=== PATIENT | female | born 1955 | race Caucasian/White ===

== ENCOUNTER 2020-08-15 11:36 | Emergency (ER) | payer BC ==
[~2020-08-15] VITALS: Ht 157.5 cm; Wt 54.5 kg
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
[2020-08-15 12:28] LABS: BASOPHILS # (AUTO) 0.2 X10'3 (0-0.2); EOSINOPHILS # (AUTO) 0.1 X10'3 (0-0.9); HEMOGLOBIN 14.4 g/dl (12.0-16.0); LYMPHOCYTES # (AUTO) 2.6 X10'3 (1.1-4.8); LYMPHOCYTES % (AUTO) 30.1 % (21-51); MEAN CORPUSCULAR HEMOGLOBIN 33.5 PG (27.0-31.0); MEAN CORPUSCULAR HGB CONC 33.6 g/dL (33.0-36.5); MEAN CORPUSCULAR VOLUME 99.8 FL (78-98); MEAN PLATELET VOLUME 6.9 FL (7.4-10.4); MONOCYTES # (AUTO) 0.4 X10'3 (0-0.9); MONOCYTES % (AUTO) 4.7 % (2-12); NEUTROPHILS # (AUTO) 5.4 X10'3 (1.8-7.7); NEUTROPHILS % (AUTO) 62.2 % (42-75); PLATELET COUNT 442 X10'3 (140-440); RED BLOOD COUNT 4.31 X10'6 (4.20-5.60); RED CELL DISTRIBUTION WIDTH 15.4 % (11.5-14.5); WHITE BLOOD COUNT 8.7 X10'3 (4.5-11.0)
[2020-08-15] MEDS ORDERED: normal saline 1000ML IV soln IVB ONE (12:30)
[2020-08-15 12:37] LABS: ALANINE AMINOTRANSFERASE 43 U/L (12-78); ALBUMIN 4.5 G/DL (3.4-5.0); ALBUMIN/GLOBULIN RATIO 1.1 (1.1-1.5); ALKALINE PHOSPHATASE 100 IU/L (46-116); ANION GAP 14 (8-16); ASPARTATE AMINO TRANSFERASE 32 U/L (10-37); BILIRUBIN,TOTAL 0.3 MG/DL (0.1-1.0); BLOOD UREA NITROGEN 16 MG/DL (7-18); BUN/CREATININE RATIO 27.1 (6.6-38.0); CHLORIDE 104 MMOL/L (99-107); CREATININE 0.59 MG/DL (0.40-0.90); GLUCOSE 104 MG/DL (70-104); SODIUM 142 MMOL/L (135-145); TOTAL CARBON DIOXIDE 23.7 MMOL/L (24-32); TOTAL PROTEIN 8.6 G/DL (6.4-8.2); eGFR > 90 ML/MIN
[2020-08-15 12:38] LABS: ETHANOL 0.348 GM/DL (0.0-0.010)
[2020-08-15 12:44] LABS: CLARITY,URINE CLEAR (Clear); COLOR,URINE STRAW (Yellow); GLUCOSE, URINE NEGATIVE (Neg); KETONES,URINE NEGATIVE (Neg); LEUKOCYTE ESTERASE ,URINE NEGATIVE (Neg); NITRITES, URINE NEGATIVE (Neg); OCCULT BLOOD,URINE NEGATIVE (Neg); PH,URINE 5.5 (4.8-8.0); PROTEIN,URINE NEGATIVE (Neg); URINE HCG NEGATIVE (NEG); UROBILINOGEN,URINE 0.2 E.U/dL (0.2-1.0)
[2020-08-15 12:49] LABS: UA COLLECTION TYPE CLN CATCH MIDSTREAM
[2020-08-15 12:51] LABS: URINE AMPHETAMINE SCREEN NEGATIVE (Neg); URINE BARBITUATE SCREEN NEGATIVE (Neg); URINE BENZODIAZEPINES SCREEN NEGATIVE (Neg); URINE CANNABINOID SCREEN NEGATIVE (Neg); URINE COCAINE SCREEN NEGATIVE (Neg); URINE METHADONE SCREEN NEGATIVE (Neg); URINE OPIATE SCREEN NEGATIVE (Neg); URINE PHENCYCLIDINE SCREEN NEGATIVE (Neg)
[2020-08-15] MEDS ORDERED: ibuprofen tablet 400 MG TABLET PO ONE (15:50)
--- NOTE | 2020-08-15 19:44 | NUR ---
The patient has been moved to bed 21 in the ER overflow. Her daughter is at the bedside. She currently feels very embarrassed about being here but she denies that she is suicidal. She is alert, oriented and pleasant.
--- NOTE | 2020-08-15 20:23 | NUR ---
The patient's daughter has left for the evening. They seemed to have a loving a close relationship.
[2020-08-15] MEDS ORDERED: ondansetron 4mg rapidly disintigrating tab PO ONE (20:40)
--- NOTE | 2020-08-15 20:42 | NUR ---
Patient reporting nausea. Vernon BISWAS made aware and order received.
--- NOTE | 2020-08-15 21:19 | NUR ---
The patient is resting on her bed and appears to be sleeping.
--- NOTE | 2020-08-15 22:41 | NUR ---
THe patient appears to be sleeping
--- NOTE | 2020-08-16 01:01 | NUR ---
The patient appears to be sleeping.
[2020-08-16] MEDS ORDERED: ondansetron 4mg rapidly disintigrating tab PO ONE (02:35)
--- NOTE | 2020-08-16 02:37 | NUR ---
The patient is awake and complaining of nausea. Dr Caceres made aware and orders received.
--- NOTE | 2020-08-16 04:24 | NUR ---
The patient appears to be sleeping
[2020-08-16] MEDS ORDERED: DESV50TA PO (05:28)
[2020-08-16] MEDS ORDERED: TRAZ-256 PO (05:28)
[2020-08-16 05:47] VITALS: BP 134/85
--- NOTE | 2020-08-16 05:54 | NUR ---
The patient appears to be sleeping well during the night
--- NOTE | 2020-08-16 06:02 | NUR ---
Per Dr. Caceres no need to do EKG at this time.
[2020-08-16] MEDS ORDERED: ketorolac tromethamine 15mg/ml inj. IV ONE (07:20)
[2020-08-16] MEDS ORDERED: ondansetron/PF 4mg/2ml inj IV ONE (07:20)
--- NOTE | 2020-08-16 08:19 | NUR ---
PT C/O MARI AND NAUSEA, INFORMED DR. SIMON, PLEASE SEE NEW ORDERS.
== END 2020-08-16 10:06 | disposition home or self-care (01) ==
LOC: ER 11:37
DX: F10.129 Alcohol abuse with intoxication, unspecified (principal); R45.851 Suicidal ideations; F43.10 Post-traumatic stress disorder, unspecified; Z88.0 Allergy status to penicillin; Z72.89 Other problems related to lifestyle
CPT/HCPCS: 36415; 80053; 80305; 80320; 81003; 81025; 85025; 93005; 96361; 96374; 96375; 99285; J1885; J2405; J7030

== ENCOUNTER 2020-11-04 10:26 | Emergency (ER) | payer MEDICARE, BC ==
[~2020-11-04] VITALS: Ht 167.6 cm; Wt 57.3 kg
[~2020-11-04 10:26] MED LIST: DESV50TA PO; TRAZ-256 PO
[2020-11-04] MEDS ORDERED: propofol 10mg/ml 20ml vial IV ONE (10:55)
[2020-11-04] MEDS ORDERED: fentaNYL/PF 50MCG/1 ML 2ML syringe IV ONE (10:55)
[2020-11-04] MEDS ORDERED: normal saline 1000ML IV soln IVB ONE (10:55)
[2020-11-04] MEDS ORDERED: HYDR-3972 PO (13:08)
[2020-11-04] MEDS ORDERED: HYDROcodone/acetaminophen 10/325mg tab PO ONE (13:40)
[2020-11-04 14:28] VITALS: BP 142/82
[2020-11-09] MEDS ORDERED: ACET-890 PO (09:34)
== END 2020-11-04 14:30 | disposition home or self-care (01) ==
LOC: ER 10:27
DX: S82.851A Displaced trimalleolar fracture of right lower leg, initial encounter for closed fracture (principal); Z79.899 Other long term (current) drug therapy; F17.200 Nicotine dependence, unspecified, uncomplicated; W01.0XXA Fall on same level from slipping, tripping and stumbling without subsequent striking against object, initial encounter; Y93.53 Activity, golf; Y92.89 Other specified places as the place of occurrence of the external cause; Y99.8 Other external cause status
CPT/HCPCS: 73600; 73610; 96360; 99152; 99153; 99285; J3010; J7030

== ENCOUNTER 2021-09-16 13:28 | Observation (INO) | payer BC, MEDICARE ==
[~2021-09-16] VITALS: Ht 160 cm; Wt 53.6 kg
[~2021-09-16 13:28] MED LIST changes: +ACET-890 PO
[2021-09-16] MEDS ORDERED: famotidine/PF 10 mg/ml inj IV ONE (14:30)
[2021-09-16] MEDS ORDERED: folic acid 1mg/0.2ml inj IV ONE (14:30)
[2021-09-16] MEDS ORDERED: normal saline 1000ML IV soln IVB ONE ×2 (14:30→15:35)
[2021-09-16] MEDS ORDERED: ondansetron inj. 24 MG in normal saline 250ml IV soln 228 ML IV SCH (14:30)
[2021-09-16] MEDS ORDERED: thiamine 100mg/ml 2ml inj. IV ONE (14:30)
[2021-09-16 14:31] LABS: BASOPHILS # (AUTO) 0.1 X10'3 (0-0.2); MONOCYTES # (AUTO) 0.4 X10'3 (0-0.9); WHITE BLOOD COUNT 6.6 X10'3 (4.5-11.0)
[2021-09-16 14:33] LABS: BASOPHILS % (AUTO) 1.3 % (0-1); EOSINOPHILS # (AUTO) 0.1 X10'3 (0-0.9); EOSINOPHILS % (AUTO) 0.9 % (0-6); HEMATOCRIT 35.5 % (35.0-45.0); LYMPHOCYTES # (AUTO) 1.4 X10'3 (1.1-4.8); LYMPHOCYTES % (AUTO) 21.3 % (21-51); MEAN CORPUSCULAR HGB CONC 33.8 g/dL (33.0-36.5); MEAN CORPUSCULAR VOLUME 97.6 FL (78-98); MEAN PLATELET VOLUME 7.2 FL (7.4-10.4); MONOCYTES % (AUTO) 5.8 % (2-12); NEUTROPHILS # (AUTO) 4.7 X10'3 (1.8-7.7); NEUTROPHILS % (AUTO) 70.7 % (42-75); PLATELET COUNT 256 X10'3 (140-440); RED BLOOD COUNT 3.64 X10'6 (4.20-5.60); RED CELL DISTRIBUTION WIDTH 15.3 % (11.5-14.5)
[2021-09-16] MEDS ORDERED: ondansetron/PF 4mg/2ml inj IV ONE (14:40)
[2021-09-16 14:50] LABS: ALANINE AMINOTRANSFERASE 19 U/L (12-78); ALBUMIN 2.9 G/DL (3.4-5.0); ALKALINE PHOSPHATASE 76 IU/L (46-116); ANION GAP 11 (8-16); ASPARTATE AMINO TRANSFERASE 26 U/L (10-37); BILIRUBIN,TOTAL 0.3 MG/DL (0.1-1.0); BLOOD UREA NITROGEN 11 MG/DL (7-18); BUN/CREATININE RATIO 21.6 (6.6-38.0); CALCIUM 7.6 MG/DL (8.5-10.1); CHLORIDE 107 MMOL/L (99-107); CREATININE 0.51 MG/DL (0.40-0.90); GLUCOSE 101 MG/DL (70-104); POTASSIUM 3.2 MMOL/L (3.5-5.1); SODIUM 139 MMOL/L (135-145); TOTAL CARBON DIOXIDE 20.9 MMOL/L (24-32); TOTAL PROTEIN 5.9 G/DL (6.4-8.2); eGFR > 90 ML/MIN
[2021-09-16 14:59] LABS: ETHANOL 0.263 GM/DL (0.0-0.010)
[2021-09-16] MEDS ORDERED: ZOLP5TAB8 PO (15:50)
[2021-09-16] MEDS ORDERED: TIZA-205 PO (15:50)
[2021-09-16] MEDS ORDERED: DESV50TA20 PO (15:50)
[2021-09-16] MEDS ORDERED: TRAZ-251 PO (15:50)
[2021-09-16] MEDS ORDERED: DOXE6TAB4 PO (15:50)
[2021-09-16] MEDS ORDERED: magnesium 4gm in 100ml NS 100 ML IV PRN (18:35)
[2021-09-16] MEDS ORDERED: metoclopramide 5 mg/ml inj IV PRN (18:35)
[2021-09-16] MEDS ORDERED: magnesium Cl slow-release 64mg tablet PO PRN (18:35)
[2021-09-16] MEDS ORDERED: potassium CL 10mEq/100ml bag 100 ML IV PRN (18:35)
[2021-09-16] MEDS ORDERED: POTASSIUM BICARB 20meq eff tab 20 MEQ TABLET.EFF PO PRN (18:35)
[2021-09-16] MEDS ORDERED: ondansetron/PF 4mg/2ml inj IV PRN (18:35)
[2021-09-16] MEDS ORDERED: magnesium 2GM in 50ml NS 50 ML IV PRN (18:35)
[2021-09-16 19:28] LABS: MAGNESIUM 1.6 MG/DL (1.5-2.4)
[2021-09-16] MEDS: K and/or MAG REPLACEMENT MC SCH (19:56)
--- NOTE | 2021-09-16 20:07 | NUR ---
PAGER ID: [phone] Dr. Eid MESSAGE: Willy Beard, in ED 5. Need Tylenol orders for pain. DX overdose on Ambien and ETOH. AX penicillin. Liver function WNL, APAP toxicology 10 (WNL). Cheryle NAVARRO [id number]
--- NOTE | 2021-09-16 20:51 | NUR ---
PAGER ID: [phone] MESSAGE: Shasha Aguilera, ED 3 Admitted patient stating she wants to leave. Here for ETOH and Ambien overdose. a/o x 4, sleepy HR 62 BP 104/68 Cheryle NAVARRO
[2021-09-16 22:00] VITALS: BP 105/60
[2021-09-17] MEDS: acetaminophen 325mg tablet PO PRN ×3 (01:23→15:23)
[2021-09-17] MEDS: thiamine 100mg/ml 2ml inj. IV SCH ×4 (01:25→21:00)
[2021-09-17] MEDS: POTASSIUM BICARB 20meq eff tab 20 MEQ TABLET.EFF PO PRN ×2 (01:25→06:00)
[2021-09-17 02:00] VITALS: BP 114/68
[2021-09-17 06:00] VITALS: BP 123/94
[2021-09-17 06:33] LABS: BASOPHILS # (AUTO) 0.1 X10'3 (0-0.2); BASOPHILS % (AUTO) 0.9 % (0-1); EOSINOPHILS % (AUTO) 0.6 % (0-6); HEMATOCRIT 35.8 % (35.0-45.0); LYMPHOCYTES # (AUTO) 0.8 X10'3 (1.1-4.8); LYMPHOCYTES % (AUTO) 10.5 % (21-51); MEAN CORPUSCULAR HEMOGLOBIN 32.2 PG (27.0-31.0); MEAN CORPUSCULAR HGB CONC 33.7 g/dL (33.0-36.5); MEAN CORPUSCULAR VOLUME 95.8 FL (78-98); MEAN PLATELET VOLUME 7.5 FL (7.4-10.4); MONOCYTES # (AUTO) 0.5 X10'3 (0-0.9); MONOCYTES % (AUTO) 6.8 % (2-12); NEUTROPHILS # (AUTO) 6.1 X10'3 (1.8-7.7); NEUTROPHILS % (AUTO) 81.2 % (42-75); PLATELET COUNT 212 X10'3 (140-440); RED BLOOD COUNT 3.73 X10'6 (4.20-5.60); RED CELL DISTRIBUTION WIDTH 15.6 % (11.5-14.5); WHITE BLOOD COUNT 7.6 X10'3 (4.5-11.0)
[2021-09-17 06:59] LABS: ALANINE AMINOTRANSFERASE 22 U/L (12-78); ALBUMIN 3.1 G/DL (3.4-5.0); ALBUMIN/GLOBULIN RATIO 1.1 (1.1-1.5); ALKALINE PHOSPHATASE 79 IU/L (46-116); ANION GAP 10 (8-16); ASPARTATE AMINO TRANSFERASE 19 U/L (10-37); BILIRUBIN,TOTAL 0.7 MG/DL (0.1-1.0); BLOOD UREA NITROGEN 14 MG/DL (7-18); BUN/CREATININE RATIO 25.9 (6.6-38.0); CALCIUM 8.4 MG/DL (8.5-10.1); CHLORIDE 104 MMOL/L (99-107); CREATININE 0.54 MG/DL (0.40-0.90); GLUCOSE 76 MG/DL (70-104); LIPASE < 50 U/L (73-393); MAGNESIUM 1.6 MG/DL (1.5-2.4); PHOSPHORUS 2.9 MG/DL (2.3-4.5); SODIUM 138 MMOL/L (135-145); eGFR > 90 ML/MIN
[2021-09-17] MEDS: K and/or MAG REPLACEMENT MC SCH ×2 (08:00→20:00)
--- NOTE | 2021-09-17 09:18 | NUR ---
Pt c/o pain paged MD regarding awaiting orders.
[2021-09-17 11:00] VITALS: BP 146/90
[2021-09-17] MEDS: traZODone 50mg tablet PO SCH ×2 (13:00→21:10)
--- NOTE | 2021-09-17 13:02 | NUR ---
new order: regular diet, Chest X ray and incentive spirometer and float valve Q2H. patient was educated to use it.
[2021-09-17 15:00] VITALS: BP 146/62
--- NOTE | 2021-09-17 16:18 | NUR ---
Patient mood was flat, stated I didn't want to eat lunch, very sleepy and took Trazodone 50 mg PO per MD order (TID) this afternoon. Continue to closely monitor her mood.
--- NOTE | 2021-09-17 16:43 | NUR ---
Pt today has a very flat affect, withdrawn and depressed feeling. Pt appears depressed. Continue to closely monitor mood and provide pt a safe environment. Frequent rounding. This RN sits with pt from time to time at eye level with pt to encourage her to verbalize her feelings of hopelessness.
--- NOTE | 2021-09-17 16:57 | NUR ---
Patient have no BM for 2 days, prune juice 240 ml given and drank it.
[2021-09-17 18:00] VITALS: BP 126/77
[2021-09-17] MEDS: tizanidine 4mg tablet PO SCH (20:00)
[2021-09-17] MEDS ORDERED: DOXEPIN HCL PO SCH (21:00)
[2021-09-17] MEDS ORDERED: zolpidem 5mg tablet PO SCH (21:00)
[2021-09-17 22:00] VITALS: BP 114/61
[2021-09-17] MEDS: pantoprazole 40mg Tablet.DR PO SCH (22:16)
[2021-09-18 02:00] VITALS: BP 98/62
[2021-09-18 06:00] VITALS: BP 132/77
[2021-09-18 06:38] LABS: EOSINOPHILS # (AUTO) 0.1 X10'3 (0-0.9); EOSINOPHILS % (AUTO) 2.5 % (0-6); HEMATOCRIT 39.4 % (35.0-45.0); HEMOGLOBIN 13.1 g/dl (12.0-16.0); LYMPHOCYTES % (AUTO) 21.6 % (21-51); MEAN CORPUSCULAR HEMOGLOBIN 32.6 PG (27.0-31.0); MEAN CORPUSCULAR HGB CONC 33.3 g/dL (33.0-36.5); MEAN CORPUSCULAR VOLUME 97.9 FL (78-98); MEAN PLATELET VOLUME 8.1 FL (7.4-10.4); MONOCYTES # (AUTO) 0.4 X10'3 (0-0.9); MONOCYTES % (AUTO) 8.2 % (2-12); NEUTROPHILS # (AUTO) 3.2 X10'3 (1.8-7.7); NEUTROPHILS % (AUTO) 66.7 % (42-75); PLATELET COUNT 190 X10'3 (140-440); RED BLOOD COUNT 4.03 X10'6 (4.20-5.60); RED CELL DISTRIBUTION WIDTH 15.4 % (11.5-14.5); WHITE BLOOD COUNT 4.7 X10'3 (4.5-11.0)
[2021-09-18 07:01] LABS: ALANINE AMINOTRANSFERASE 22 U/L (12-78); ALBUMIN 3.2 G/DL (3.4-5.0); ALBUMIN/GLOBULIN RATIO 0.9 (1.1-1.5); ALKALINE PHOSPHATASE 92 IU/L (46-116); ANION GAP 6 (8-16); ASPARTATE AMINO TRANSFERASE 23 U/L (10-37); BILIRUBIN,TOTAL 0.8 MG/DL (0.1-1.0); BLOOD UREA NITROGEN 8 MG/DL (7-18); BUN/CREATININE RATIO 12.3 (6.6-38.0); CHLORIDE 103 MMOL/L (99-107); CREATININE 0.65 MG/DL (0.40-0.90); GLUCOSE 97 MG/DL (70-104); LIPASE 77 U/L (73-393); MAGNESIUM 1.7 MG/DL (1.5-2.4); SODIUM 137 MMOL/L (135-145); TOTAL CARBON DIOXIDE 28.4 MMOL/L (24-32); TOTAL PROTEIN 6.6 G/DL (6.4-8.2); eGFR > 90 ML/MIN
[2021-09-18 07:23] LABS: CALCIUM 8.9 MG/DL (8.5-10.1)
[2021-09-18] MEDS ORDERED: venlafaxine 25mg tablet PO SCH (08:00)
[2021-09-18] MEDS: K and/or MAG REPLACEMENT MC SCH (08:00)
[2021-09-18] MEDS: thiamine 100mg/ml 2ml inj. IV SCH (08:00)
[2021-09-18] MEDS: acetaminophen 325mg tablet PO PRN (09:56)
[2021-09-18] MEDS: pantoprazole 40mg Tablet.DR PO SCH (09:57)
[2021-09-18] MEDS: traZODone 50mg tablet PO SCH (09:57)
[2021-09-18] MEDS: tizanidine 4mg tablet PO SCH (09:57)
[2021-09-18] MEDS ORDERED: MULT-1085 PO (10:47)
[2021-09-18] MEDS ORDERED: PANT40TA54 PO (10:47)
[2021-09-18] MEDS ORDERED: THIA50TA10 PO (10:47)
[2021-09-18] MEDS ORDERED: FOLI0.4T6 PO (10:47)
[2021-09-21] MEDS ORDERED: folic acid 1mg tablet PO SCH (08:00)
[2021-09-21] MEDS ORDERED: thiamine 100mg tablet PO SCH (08:00)
--- NOTE | 2021-09-22 14:48 | NUR ---
Case Management DC follow up: Spoke with Patient via telephone.S/P : Patient Reports: Denies: Emergent SOB, resp distress; however, complains of discomfort with her ribs on her right side from previous fall, verbalizes nothing broken on x-ray.Encourage to use a pillow to splint ribs if coughing.Verbalizes she has dizziness when she first stands, reviewed need to sit up slowly, wait until dizziness subsides and then stand slowly. Verbalizes her is there to help.Verbalizes compliance with aftercare.Verbalizes she is not taking Ambien, nor is she drinking alcohol .Verbalizes understanding of s/s that warrant a 9-11/ER visit for further evaluation.Verbalizes understanding of new Rx,, why prescribed; continues/resumes currant Rx as ordered.Patient verbalizes she will call her PCP for follow up appointment.Verbalizes that the nurses and everyone were very kind and took good care of her.Needs met, questions/concerns addressed at DC.No further questions/concerns regarding recent hospital stay and/or DC status at this time.
== END 2021-09-18 12:28 | disposition home or self-care (01) ==
LOC: ER 13:28 → ED HOLD 18:38 → EDBEDREQ 20:34 → PCU 3S 22:10
PROVIDERS: ADMIT Internal Medicine; ATTEND Internal Medicine
DX: G93.41 Metabolic encephalopathy (principal); F10.220 Alcohol dependence with intoxication, uncomplicated; T42.6X1A Poisoning by other antiepileptic and sedative-hypnotic drugs, accidental (unintentional), initial encounter; E87.6 Hypokalemia; F32.A Depression, unspecified; Z88.0 Allergy status to penicillin; Z90.710 Acquired absence of both cervix and uterus; Z79.899 Other long term (current) drug therapy; W19.XXXA Unspecified fall, initial encounter; Y93.89 Activity, other specified; Y92.89 Other specified places as the place of occurrence of the external cause
CPT/HCPCS: 36415; 70450; 71046; 80053; 80320; 80329; 82140; 83690; 83735; 84100; 84443; 85025; 85610; 87081; 94667; 94668; 94760; 96361; 96374; 96375; 96376; 97116; 97161; 97530; 99291; 99292; G0378; J2405; J3411; J3490; J7030

== ENCOUNTER 2023-11-08 09:31 | Emergency (ER) | payer MEDICARE, BC ==
[~2023-11-08] VITALS: Ht 162.6 cm; Wt 50.0 kg
[~2023-11-08 09:31] MED LIST changes: -ACET-890 PO; +CLON0.1T2 PO; -DESV50TA PO; +DICL20GE TP; +LORA-269 PO; +MULT-25 PO; +NALT50TA5 PO; +PANT40TA54 PO; +QUET100T34 PO; +TIZA-205 PO; -TRAZ-256 PO; +VENL225T3 PO
[2023-11-08 09:37] VITALS: TEMP 97.9
[2023-11-08 10:24] LABS: ALANINE AMINOTRANSFERASE 23 U/L (12-78); ALBUMIN 3.6 G/DL (3.4-5.0); ALBUMIN/GLOBULIN RATIO 0.8 (1.1-1.5); ALKALINE PHOSPHATASE 106 IU/L (46-116); ANION GAP 11 (8-16); ASPARTATE AMINO TRANSFERASE 21 U/L (10-37); BILIRUBIN,TOTAL 0.3 MG/DL (0.1-1.0); BLOOD UREA NITROGEN 17 MG/DL (7-18); BUN/CREATININE RATIO 19.8 (10.0-20.0); CALCIUM 9.3 MG/DL (8.5-10.1); CHLORIDE 100 MMOL/L (99-107); CREATININE 0.86 MG/DL (0.40-0.90); GLUCOSE 114 MG/DL (70-104); POTASSIUM 3.9 MMOL/L (3.5-5.1); SODIUM 138 MMOL/L (135-145); TOTAL CARBON DIOXIDE 27.3 MMOL/L (24-32); TOTAL PROTEIN 8.1 G/DL (6.4-8.2); eCRCL 49 ML/MIN; eGFR 66 ML/MIN
[2023-11-08 10:35] LABS: BASOPHILS % (AUTO) 0.3 % (0-1); EOSINOPHILS # (AUTO) 0.1 X10'3 (0-0.9); EOSINOPHILS % (AUTO) 1.4 % (0-6); HEMATOCRIT 40.3 % (35.0-45.0); HEMOGLOBIN 13.2 g/dl (12.0-16.0); LYMPHOCYTES # (AUTO) 2.2 X10'3 (1.1-4.8); LYMPHOCYTES % (AUTO) 34.3 % (21-51); MEAN CORPUSCULAR HEMOGLOBIN 30.9 PG (27.0-31.0); MEAN CORPUSCULAR HGB CONC 32.8 g/dL (33.0-36.5); MEAN CORPUSCULAR VOLUME 94.2 FL (78-98); MEAN PLATELET VOLUME 7.3 FL (7.4-10.4); MONOCYTES # (AUTO) 0.5 X10'3 (0-0.9); MONOCYTES % (AUTO) 7.9 % (2-12); NEUTROPHILS # (AUTO) 3.6 X10'3 (1.8-7.7); NEUTROPHILS % (AUTO) 56.1 % (42-75); PLATELET COUNT 626 X10'3 (140-440); RED BLOOD COUNT 4.28 X10'6 (4.20-5.60); RED CELL DISTRIBUTION WIDTH 14.6 % (11.5-14.5); WHITE BLOOD COUNT 6.4 X10'3 (4.5-11.0)
[2023-11-08 11:31] LABS: BILIRUBIN,URINE NEGATIVE (Neg); CLARITY,URINE SLIGHTLY CLOUDY (Clear); COLOR,URINE YELLOW (Yellow); GLUCOSE, URINE NEGATIVE (Neg); KETONES,URINE NEGATIVE (Neg); LEUKOCYTE ESTERASE ,URINE NEGATIVE (Neg); NITRITES, URINE NEGATIVE (Neg); OCCULT BLOOD,URINE NEGATIVE (Neg); PH,URINE 5.5 (4.8-8.0); PROTEIN,URINE NEGATIVE (Neg); UROBILINOGEN,URINE 0.2 E.U/dL (0.2-1.0)
[2023-11-08 11:42] LABS: UA COLLECTION TYPE NON-SPECIFIED
[2023-11-08 11:44] LABS: MUCUS STRANDS FEW /LPF (Neg); SQUAMOUS EPITHELIAL CELL,UR FEW /LPF (FEW)
[2023-11-08 11:46] LABS: BACTERIA,URINE 1+ /HPF (Neg)
[2023-11-08 11:52] LABS: RBC,URINE 0-2 /HPF (0-2)
[2023-11-08 11:55] LABS: COARSE GRANULAR CAST 0-3 /LPF (NEGATIVE); HYALINE CASTS 0-3 /LPF (NEGATIVE)
[2023-11-08] MEDS: cephalexin 250mg capsule PO ONE (12:12)
[2023-11-08] MEDS ORDERED: CEPH-585 PO (12:16)
[2023-11-08 12:28] VITALS: BP 138/80; PULSE 82; RESP 16; O2SAT 98
== END 2023-11-08 12:30 | disposition home or self-care (01) ==
LOC: ER 09:31
DX: N39.0 Urinary tract infection, site not specified (principal); F32.A Depression, unspecified; Z88.0 Allergy status to penicillin; Z79.2 Long term (current) use of antibiotics; Z79.1 Long term (current) use of non-steroidal anti-inflammatories (NSAID)
CPT/HCPCS: 36415; 71045; 80053; 81001; 85025; 87088; 93005; 99285

== ENCOUNTER 2025-03-28 12:27 | Inpatient (IN) | payer MEDICARE, BC ==
[~2025-03-28] VITALS: Ht 157.5 cm; Wt 54.0 kg
[~2025-03-28 12:27] MED LIST changes: +CHLO25CA10 PO
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
[2025-03-28 13:37] LABS: MEAN PLATELET VOLUME 7.2 FL (7.4-10.4); RED CELL DISTRIBUTION WIDTH 19.5 % (11.5-14.5)
[2025-03-28 13:56] LABS: CREATININE 0.59 MG/DL (0.40-0.90); TOTAL CARBON DIOXIDE 21.6 MMOL/L (24-32); eCRCL 71 ML/MIN; eGFR > 90 ML/MIN
[2025-03-28] MEDS: normal saline 1000ml 1,000 ML IV ONE (13:56)
[2025-03-28] MEDS: HYDROcodone/acetaminophen 5mg/325mg tablet PO ONE (13:57)
[2025-03-28] MEDS: ondansetron/PF 4mg/2ml inj IV ONE (13:58)
[2025-03-28] MEDS ORDERED: magnesium hydroxide 30ml (MOM) UD suspension PO PRN (14:50)
[2025-03-28] MEDS ORDERED: magnesium Cl slow-release 64mg tablet PO PRN (14:50)
[2025-03-28] MEDS ORDERED: mag hydrox/Alum hydrox/simeth 30ml oral suspension PO PRN (14:50)
[2025-03-28] MEDS ORDERED: potassium Cl 20 mEq SR tablet PO PRN ×2 (14:50)
[2025-03-28] MEDS ORDERED: magnesium sulf-water 4G/100mL 100 ML IV PRN (14:50)
[2025-03-28] MEDS ORDERED: magnesium sulf-water 2g/50mL 50 ML IV PRN (14:50)
--- NOTE | 2025-03-28 15:28 | RADIOLOGY REPORT ---
US limited, RUQ INDICATION: hepatitis, alcoholism COMPARISON: None TECHNIQUE: Limited ultrasound of the abdomen was performed and reviewed. FINDINGS: The pancreas is partially obscured by bowel gas. The liver is echogenic suggestive of hepatic steatosis. Cholelithiasis. Mild gallbladder distention with borderline wall thickening. Positive sonographic Alcala's sign. The common bile duct measures 4 mm. The right kidney is 8.3cm., partially obscured. No evidence for hydronephrosis. IMPRESSION: Constellation of findings suspicious for early acute cholecystitis.
--- NOTE | 2025-03-28 16:10 | RADIOLOGY REPORT ---
EXAM: CT CT LUMBAR SPINE DATE OF SERVICE: 03/28/2025 03:37 PM HISTORY: low back pain COMPARISON: None TECHNIQUE: Multiple axial CT images of the lumbosacral spine were obtained. Radiation Dose Information: CT Dose: CTDI volume is 17 mGy. Dose-length product is 541 mGy*cm FINDINGS: Vertebral body height is maintained. Vertebral alignment is anatomic. Degenerative changes of the lumbar spine with disc bulges and facet arthropathy. No high-grade spinal canal or foraminal stenosis at any level. No mass is identified within the lumbar spinal canal or paravertebral soft tissues. Partially visualized dilated common bile duct measuring up to 8 mm. IMPRESSION: No acute fracture or traumatic subluxation. Partially visualized dilated common bile duct measuring up to 8 mm. Correlate with laboratory analysis to assess for possible biliary obstruction.
[2025-03-28] MEDS ORDERED: TRAZ-251 PO (17:28)
[2025-03-28] MEDS ORDERED: HYDR-3965 PO (17:32)
[2025-03-28 17:54] LABS: LEUKOCYTE ESTERASE ,URINE SMALL (Neg); NITRITES, URINE NEGATIVE (Neg); OCCULT BLOOD,URINE TRACE-INTACT (Neg)
[2025-03-28 17:58] LABS: MUCUS STRANDS FEW /LPF (Neg); SQUAMOUS EPITHELIAL CELL,UR FEW /LPF (FEW); UA COLLECTION TYPE OTHER
[2025-03-28 18:30] LABS: URINE AMPHETAMINE SCREEN NEGATIVE (Neg); URINE BARBITUATE SCREEN NEGATIVE (Neg); URINE BENZODIAZEPINES SCREEN POSITIVE (Neg); URINE CANNABINOID SCREEN NEGATIVE (Neg); URINE COCAINE SCREEN NEGATIVE (Neg); URINE METHADONE SCREEN NEGATIVE (Neg); URINE OPIATE SCREEN POSITIVE (Neg); URINE PHENCYCLIDINE SCREEN NEGATIVE (Neg)
[2025-03-28 18:31] LABS: CHOL/HDL RATIO 1.5 (0.00-4.99); LDL CHOLESTEROL 42 MG/DL (50-100)
[2025-03-28] MEDS ORDERED: HYDROmorphone inj. 0.5 MG/0.5 ML DISP.SYRIN IM PRN (18:40)
--- NOTE | 2025-03-28 18:54 | HISTORY AND PHYSICAL-Residence ---
History & Physical Providers to Resident Creating Document: MOHAMUD LAUGHLIN, RES ~ History of Present Illness Primary Medical Doctor: Dr. Rg Reason for Admit\Complaint: Alcohol withdrawal History of Present Illness This is a 69-year-old female with history of alcohol use disorder, depression who came to the ER complaining of generalized weakness. She has not on any able to move around in the house. She gets extremely tired just by walking to the bathroom. She has had episodes of lightheadedness with sudden movements. She gives history of drinking excessive alcohol from the past 3 months after her goddaughter and her dog . She drinks 3 cans of extra strength beer. She gives history of alcohol use disorder in the past. She has had alcohol-induced hallucinations in the past. Currently she complains of tremors in her hands and legs, intractable nausea with vomiting. Vomitus contained food particles, non blood-tinged not bile-stained. No hallucinations, no seizures currently. She is alert oriented and cooperative. She also gives history of extreme weakness, poor oral intake due to depression and alcohol. Unable to perform daily activities. She also gives history of shortness of breath with palpitation which wakes her up, especially at night. This can be suggestive of orthopnea or a panic attack. She does have history of panic attack. She underwent endoscopy and colonoscopy 2 months ago since she was having diarrhea, 6 episodes a day one episode of black tarry stool. The endoscopy revealed that she had a stomach ulcer and the colonoscopy revealed an impacted stool which was causing diarrhea. Currently not complaining of abdominal pain. She has been on many psychiatric medications for depression in the past, which have caused adverse reactions on her including delirium, confusion, lethargy and apathy. She has a history of chronic back pain, diagnosed with osteoporosis and arthritis. She has been treating the back pain with Tylenol and beer. She takes extra-strength Tylenol [id number]. Does not remember the name of her primary care provider but endorses that she visited him 4 months ago. No history of chest pain, dizziness, diaphoresis, syncope. No history of abdominal pain currently, no hematemesis, no melena no hematochezia. Allergies: Coded Allergies: Penicillins (Verified Allergy, Unknown, 11/08/23) Qirxetx-UNH-LaY Reductase Inhibitor (Unverified Adverse Reaction, Unknown, I get mentally weird, 03/12/25) Home Medications Home Medications Active Pantoprazole Sodium 40 Mg Tablet.dr 40 Mg PO DAILY@0730 Voltfridaatif Arthritis Pain (Diclofenac Sodium) 20 Gm Gel..gram. 1 Applic TP TID 7 Days Reported Sunset 5/325 MG (Acetaminophen/Hydrocodone Bitart) 5 Mg/325 Mg Tablet 1 Tab PO TID PRN Trazodone HCl 50 Mg Tablet 2 Tab PO HS 30 Days Past Medical History Past Medical History Alcohol use disorder Depression Anxiety Past Surgical History Surgical History Comment Nothing significant Past Social History Smoking: Non-Smoker Alcohol Use: Heavy (3 large cans of beers a day) Drug Use: None Lives with: Spouse Lives In: Home Occupation: unemployed ROS All Other Systems: Reviewed and Negative Exam Vitals: Vital Signs Date Time Temp Pulse Resp B/P (MAP) Pulse Ox O2 Delivery O2 Flow Rate FiO2 03/28/25 18:37 16 03/28/25 16:00 98 130/92 (105) 95 0 03/28/25 12:30 98.7 General: General: Poorly built, Well alert, well oriented, not confused, not agitated, not in acute distress, well cooperated during the physical. HEENT: Conjunctive are pink, sclerae clear, no icterus, pupil is equal in both sides, reactive to light, no ear discharge, no pharyngeal erythema or an edema. Neck: Supple, no JVD, no lymphadenopathy and thyromegaly. Chest: Equal air entry on both lungs, no added sounds, no wheeze. Cardiovascular: S1-S2 regular sinus rhythm and, regular rate, no gallops, no rubs, no murmurs Abdomen: No visible peristalsis, Bowel sounds present on auscultation, soft, nontender, no guarding, no rigidity Extremities: No obvious deformities, no pitting edema bilaterally, capillary refill intact, peripheral pulsations are intact on both sides Central Nervous System: Tremors in the hands and legs, tremors in tongue. No focal neurological deficits, no motor or sensory weakness in all 4 extremities, could move all 4 extremities, 2+ deep tendon reflexes, negative Babinski. Musculoskeletal: No joint swelling, deformities, inflammations, and no scoliosis and back tenderness Skin: Warm and dry. Diagnostic Data Last Recorded Lab Results: 03/28/25 1329 03/28/25 1328 Counseling Services Smoking & Tobacco Cessation: N/A Advance Care Planning Advanced Care plannin - 30 Minutes (Full code) Additional Plan Assessment: This is a 69-year-old woman currently being treated for heavy alcohol withdrawal, acute liver injury with acetaminophen toxicity, suicidal ideation and depression. Plan: Severe alcohol withdrawal CIWA score 25 No hallucination Vitals: Tachycardia, sinus rhythm. CMP essentially normal. Started the patient on CIWA alcohol withdrawal protocol Ordered phenobarbital 130 mg due to severe shaking. We will continue with Ativan 4 mg and 2 mg prn. Nausea and vomiting to be controlled with Zofran 4 mg p.r.n. q.4h and Compazine 10 mg q.4h p.r.n. Vitamin B12 folic acid and multivitamins on chart Monitor vitals, monitor levels. Patient looks dehydrated, normal saline at 75 mL/hour. Acute hepatic injury, multifactorial Alcohol-induced, acetaminophen Acetaminophen levels within the normal range. We will start N acetyl cystine just as a precautionary measure AST 2000, ALT 75, awaiting INR. Bilirubin in the normal range. Patient has no signs and symptoms of hepatic failure, no jaundice, no abdominal distention, no ascites, no abdominal pain. Abdominal ultrasound shows hepatic steatosis with cholelithiasis and a CBD diameter of 0.4. Ordered HIDA scan. Continue monitor levels. Normal lipase levels. Avoid acetaminophen at all cost. Chronic back pain, osteoarthritis, osteoporosis Lumbar spine CT shows No acute fracture or traumatic subluxation. Pain management with morphine/Dilaudid. 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 Vitamin B12, thiamine, multivitamins on board. Dyslipidemia ASCVD score indicates moderate to high intensity statin Currently on hold in view of her acute hepatic injury. Suicidal ideation, depression and anxiety. Not on any medication currently niranjan Dale Code status: Full code DVT prophylaxis: Heparin 5000 subcutaneous Analgesia/sedation: Morphine/Sunset Line/tube: PIV GI prophylaxis: Protonix Nutrition: Regular diet PT: Ordered. Prognosis: Guarded Disposition: [id number] MD PGY1, Internal Medicine [facility] Date of Service: Mar 28, 2025 Billing Provider: PIOTR LUA MD, SHIVANI, RES Mar 28, 2025 18:54
--- NOTE | 2025-03-28 19:03 | RADIOLOGY REPORT ---
CHEST RADIOGRAPH INDICATION: orthopnea TECHNIQUE: Single frontal view of the chest was obtained COMPARISON: DI CHEST,SINGLE VIEW on DOS: 11/08/23, CHEST,TWO VIEWS on DOS: 09/17/21 FINDINGS: Lines and Tubes: None Lungs: Clear Pleura: No effusion. No pneumothorax. Cardiomediastinal contours: Unremarkable Bones: Unremarkable IMPRESSION: No acute disease.
[2025-03-28] MEDS: normal saline 1000ml 1,000 ML IV SCH (19:05)
[2025-03-28 19:17] LABS: INR 1.1 INR
[2025-03-28 19:52] LABS: CREATININE 0.56 MG/DL (0.40-0.90); TOTAL CARBON DIOXIDE 18.8 MMOL/L (24-32); eCRCL 75 ML/MIN; eGFR > 90 ML/MIN
[2025-03-28 19:56] LABS: CHOL/HDL RATIO 1.5 (0.00-4.99); LDL CHOLESTEROL 37 MG/DL (50-100); PRO BRAIN NATRIURETIC PEPTIDE 247 PG/ML (0-125)
[2025-03-28] MEDS: docusate sod 100mg capsule PO SCH (20:00)
[2025-03-28] MEDS: K and/or MAG REPLACEMENT MC SCH (20:00)
[2025-03-28] MEDS: heparin, porcine 5000 units/ml vial SQ SCH (20:21)
[2025-03-28] MEDS: thiamine 100mg/ml 2ml inj. IV SCH (20:22)
[2025-03-28] MEDS ORDERED: HYDROcodone/acetaminophen 5mg/325mg tablet PO PRN (21:20)
[2025-03-28] MEDS ORDERED: HYDROcodone/acetaminophen 10/325mg tab PO PRN ×2 (21:20→21:30)
[2025-03-28] MEDS: HYDROcodone/acetaminophen 5mg/325mg tablet PO PRN (23:47)
[2025-03-29] VITALS (7 sets, daily range): BP systolic 126–152; BP diastolic 74–89; PULSE 85–111; RESP 11–15; TEMP 97.6–98.6; O2SAT 96–97
--- NOTE | 2025-03-29 00:28 | PROGRESS NOTE- Residence ---
Progress Note - Resident Providers to CC Resident Creating Document: KOKO SHAW, TIMOTHY ~ Antibiotic Timeout Antibiotic Ordered?: No Subjective Received sign-out from morning resident for super high AST and ALT. Monitored the CMP which showed corrected anion gap ( 16.9)metabolic acidosis. AST is 1878 and ALT is 745. AST to ALT ratio is more than 2 . Pending viral hepatitis panel . Objective Vital Signs Date Time Temp Pulse Resp B/P (MAP) Pulse Ox O2 Delivery O2 Flow Rate FiO2 03/28/25 23:47 16 03/28/25 23:44 91 139/83 (101) 96 0 03/28/25 12:30 98.7 Result Diagram: 03/28/25 1329 03/28/25 1841 Coagulation Studies Laboratory Tests Test 03/28/25 18:41 Prothrombin Time 11.3 SECONDS (9.0-12.0) INR International Normalized Ratio 1.1 INR Coagulation Comments Plan Plan Alcohol associated liver disease Alcohol associated hepatic steatosis High anion gap metabolic acidosis De Ritis ratio AST to ALT ratio is more than 2, AST is 1878 and ALT is 745. Maddreys discriminant function is -2.6 and patient does not need any steroids. Monitored the CMP which showed corrected anion gap ( 16.9)metabolic acidosis. Pending viral hepatitis panel. Patient seems to be in alcohol associated hepatic steatosis rather than cirrhosis probably silo painter consultation is needed We will continue supportive management with vitamin ADEK and ensure EN live protein supplements Date of Service: Mar 29, 2025 Billing Provider: JULIEN JOSHI MD, VENKATESH, RES Mar 29, 2025 00:28
--- NOTE | 2025-03-29 01:11 | PROGRESS NOTE ---
Clinical Note Clinical Note Progress Note: Received sign-out from morning resident for super high AST and ALT. Monitored the CMP which showed corrected anion gap ( 16.9)metabolic acidosis. AST is 1878 and ALT is 745. AST to ALT ratio is more than 2 . Pending viral hepatitis panel . Alcohol associated liver disease Alcohol associated hepatic steatosis High anion gap metabolic acidosis De Ritis ratio AST to ALT ratio is more than 2, AST is 1878 and ALT is 745. Maddreys discriminant function is -2.6 and patient does not need any steroids. Monitored the CMP which showed corrected anion gap ( 16.9)metabolic acidosis. Pending viral hepatitis panel. Patient seems to be in alcohol associated hepatic steatosis rather than cirrhosis probably poultry service technician consultation is needed We will continue supportive management with vitamin ADEK and ensure EN live protein supplements Koko Shaw IM resident, PGY 2 KOKO SHAW, RES Mar 29, 2025 01:11
[2025-03-29 01:59] LABS: ETHANOL < 10 MG/DL (<10)
[2025-03-29] MEDS ORDERED: multivitamins, therapeutics tablet PO SCH (08:00)
[2025-03-29] MEDS: multivitamins, therapeutics tablet PO SCH (08:30)
[2025-03-29] MEDS: folic acid 1mg/0.2ml inj IV SCH (08:53)
[2025-03-29 09:32] LABS: INR 1.1 INR
[2025-03-29] MEDS: ondansetron/PF 4mg/2ml inj IV PRN (10:59)
--- NOTE | 2025-03-29 14:35 | CARDIOLOGY REPORT ---
APPROVED REPORT EXAM: Comprehensive 2D, Doppler, and color-flow Echocardiogram. Patient Location: 3024 A Heart Rate: 80's bpm Rhythm: SINUS Indications SYNCOPE TACHYCARDIA [employer] Tender: NONE Previous echo: NONE 2D Dimensions RVDd 2.9 cm IVSd 0.9 (0.7-1.1cm) LVDd 4.4 cm PWd 0.9 (0.7-1.1cm) IVSs 1.0 (0.8-1.2cm) LVDs 3.0 (2.5-4.0cm) PWs 1.0 (0.8-1.2cm) LVOT Diameter 1.85 (1.8-2.4cm) LVEF(%) 60.1 (>50%) FS (%) 31.8 % SV 51.8 ml CO 4.2 L/min M-Mode Dimensions Left Atrium(MM) 3.46 (2.5-4.0cm) Aortic Root 2.11 (2.2-3.7cm) Aortic Cusp Exc 1.95 (1.5-2.0cm) Aortic Valve AoV Peak Juan. 137.8 cm/s AoV VTI 25.0 cm AO Peak GR. 7.6 mmHg AO Mean GR. 4 mmHg LVOT VTI 19.81 cm LVOT Peak Juan. 96.5 cm/s SHARMAINE(VTI)/BSA 2.14 cm2/m2 SHARMAINE (VTI) 2.14 cm2 AV DI 0.79 % Mitral Valve MV E Velocity 63.9 cm/s MV Peak Gr. 2 mmHg MV DECEL TIME 204 ms MV A Velocity 99.0 cm/s MV PHT 52 ms E/A Ratio 0.6 MVA (PHT) 4.23 cm2 MV VMax 78.6 cm/s TDI Lateral E' P. V 10.84 cm/s E/Lateral E' 5.9 Tricuspid Valve TR P. Velocity 227 cm/s RAP ESTIMATE 10 mmHg TR Peak Gr. 21 mmHg RVSP 31 mmHg Pulmonary Vein S1 Velocity 72.5 cm/s D2 Velocity 45.4 cm/s PVa Velocity 37.1 cm/s PVa Duration 116 msec LEFT VENTRICLE Normal LV size and wall thickness. Overall systolic function is normal. Overall LVEF is 60-65%. RIGHT VENTRICLE RV is normal size and function. Estimated PA systolic pressure of 31 mm of mercury. ATRIA The left atrium size is normal. AORTIC VALVE Trileaflet AV appears sclerotic without stenosis. No insufficiency by color and spectral flow Doppler. MITRAL VALVE Mild MV annular calcification without stenosis. Mild regurgitation by color and spectral flow Doppler. TRICUSPID VALVE TV appears structurally normal with trace regurgitation by color and spectral flow Doppler. PULMONIC VALVE Normal PV without stenosis, physiologic insufficiency by color and spectral flow Doppler. GREAT VESSELS The aortic root is normal in size. PERICARDIUM Normal pericardium. No effusion. Other Information Study Quality: Adequate Conclusion Overall LVEF is 60-65%. Normal LV size and wall thickness. Overall systolic function is normal. RV is normal size and function. Estimated PA systolic pressure of 31 mm of mercury. Trileaflet AV appears sclerotic without stenosis. No insufficiency by color and spectral flow Doppler. Mild MV annular calcification without stenosis. Mild regurgitation by color and spectral flow Doppler. TV appears structurally normal with trace regurgitation by color and spectral flow Doppler. Normal PV without stenosis, physiologic insufficiency by color and spectral flow Doppler. Normal pericardium. No effusion.
[2025-03-29 15:54] LABS: CREATININE 0.71 MG/DL (0.40-0.90); TOTAL CARBON DIOXIDE 24.0 MMOL/L (24-32); eCRCL 59 ML/MIN; eGFR 82 ML/MIN
[2025-03-29 15:55] LABS: MEAN PLATELET VOLUME 7.4 FL (7.4-10.4); RED CELL DISTRIBUTION WIDTH 19.2 % (11.5-14.5)
[2025-03-29] MEDS: magnesium sulf-water 4G/100mL 100 ML IV ONE (16:06)
--- NOTE | 2025-03-29 18:11 | PROGRESS NOTE- Residence ---
Progress Note - Resident Providers to CC Resident Creating Document: LING LAUGHLIN, TIMOTHY ~ Central Line/PICC still needed: N\A [place]-Non Protocol [place] Indications Met/Not Met: F/C Indications Not Met Antibiotic Timeout Antibiotic Ordered?: Yes Subjective Patient was examined bedside. Her shaking his improved since yesterday. She still complains of nausea although better than yesterday. Zofran and Compazine on board. No acute symptoms overnight. Objective Vital Signs Date Time Temp Pulse Resp B/P (MAP) Pulse Ox O2 Delivery O2 Flow Rate FiO2 03/29/25 17:12 14 03/29/25 15:00 98.6 102 152/84 (106) 97 Room Air 03/29/25 11:19 0.0 Result Diagram: 03/29/25 1528 03/29/25 1528 General: Poorly built, Well alert, well oriented, not confused, not agitated, not in acute distress, well cooperated during the physical. HEENT: Conjunctive are pink, sclerae clear, no icterus, pupil is equal in both sides, reactive to light, no ear discharge, no pharyngeal erythema or an edema. Neck: Supple, no JVD, no lymphadenopathy and thyromegaly. Chest: Equal air entry on both lungs, no added sounds, no wheeze. Cardiovascular: S1-S2 regular sinus rhythm and, regular rate, no gallops, no rubs, no murmurs Abdomen: Positive Alcala sign, Bowel sounds present on auscultation, soft, nontender, no guarding, no rigidity Extremities: No obvious deformities, no pitting edema bilaterally, capillary refill intact, peripheral pulsations are intact on both sides Central Nervous System: Tremors in the hands and legs, tremors in tongue. No focal neurological deficits, no motor or sensory weakness in all 4 extremities, could move all 4 extremities, 2+ deep tendon reflexes, negative Babinski. Musculoskeletal: No joint swelling, deformities, inflammations, and no scoliosis and back tenderness Skin: Warm and dry. Coagulation Studies Laboratory Tests Test 03/29/25 08:59 Prothrombin Time 11.6 SECONDS (9.0-12.0) INR International Normalized Ratio 1.1 INR Coagulation Comments Assessment Assessment This is a 69-year-old woman currently being treated for heavy alcohol withdrawal, acute liver injury with acetaminophen toxicity, suicidal ideation and depression. Her procalcitonin level is elevated, positive source of infection could be cholecystitis. Plan Plan Severe alcohol withdrawal CIWA score 25 No hallucination Vitals: Tachycardia, sinus rhythm. CMP essentially normal. Started the patient on [facility] alcohol withdrawal protocol We will continue with Ativan 4 mg and 2 mg prn. Nausea and vomiting to be controlled with Zofran 4 mg p.r.n. q.4h and Compazine 10 mg q.4h p.r.n. Vitamin B12 folic acid and multivitamins on chart Monitor vitals, monitor levels. Patient looks dehydrated, normal saline at 75 mL/hour. Acute hepatic injury, multifactorial Alcohol-induced, acetaminophen Acetaminophen levels within the normal range. We will start N acetyl cystine just as a precautionary measure since acetaminophen level is above 10. Repeat acetaminophen level shows less than 2. Completed 3 bags of in Nacetyl cystine AST and ALT improving today. Normally ALP, bilirubin and INR Patient has no signs and symptoms of hepatic failure, no jaundice, no abdominal distention, no ascites, no abdominal pain. Abdominal ultrasound shows hepatic steatosis with cholelithiasis and a CBD diameter of 0.4. Ordered HIDA scan. Continue monitor levels. Normal lipase levels. Avoid acetaminophen at all cost. Poison control on board. Cholelithiasis and cholecystitis Alcala sign positive, elevated procalcitonin. Patient does not seem to be in sepsis. Elevated procalcitonin. Ordered a HIDA scan. With blood culture Started Zosyn and probiotics. Chronic back pain, osteoarthritis, osteoporosis Lumbar spine CT shows No acute fracture or traumatic subluxation. Pain management with tramadol 50 q.8h p.r.n. 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 Vitamin B12, thiamine, multivitamins on board. Dyslipidemia ASCVD score indicates moderate to high intensity statin Currently on hold in view of her acute hepatic injury. Suicidal ideation, depression and anxiety. Not on any medication currently Code status: Full code DVT prophylaxis: Heparin 5000 subcutaneous Analgesia/sedation: Morphine/[place] Line/tube: PIV GI prophylaxis: Protonix Nutrition: Regular diet PT: Ordered. Prognosis: Guarded Disposition: This case has been discussed and seen by my senior residents PGY 2/PGY [address] Sy. Ling Laughlin MD PGY1, Internal Medicine [facility] Date of Service: Mar 29, 2025 Billing Provider: PIOTR SY MD, SHIVANI, RES Mar 29, 2025 18:11
[2025-03-29] MEDS: piperacillin/tazo 4.5gm/100ml 100 ML IV SCH (20:42)
[2025-03-30 02:00] VITALS: BP 137/78; PULSE 101; RESP 18; TEMP 97.8; O2SAT 96
[2025-03-30] MEDS: piperacillin/tazo 4.5gm/100ml 100 ML IV SCH (03:51)
[2025-03-30 06:00] VITALS: BP 120/71; PULSE 84; RESP 12; TEMP 97.6; O2SAT 97
[2025-03-30 06:41] LABS: INR 1.1 INR
[2025-03-30 06:43] LABS: MEAN PLATELET VOLUME 7.5 FL (7.4-10.4); RED CELL DISTRIBUTION WIDTH 18.8 % (11.5-14.5)
[2025-03-30 06:55] LABS: CREATININE 0.55 MG/DL (0.40-0.90); TOTAL CARBON DIOXIDE 25.5 MMOL/L (24-32); eCRCL 76 ML/MIN; eGFR > 90 ML/MIN
[2025-03-30 08:00] VITALS: RESP 11; O2SAT 97
[2025-03-30] MEDS: lactobacillus rhamnosus 10,000 MMU CELLS/CAPSULE PO SCH (08:00)
[2025-03-30 11:00] VITALS: PULSE 74; RESP 11
[2025-03-30] MEDS: NORMAL SALINE IV ONE (12:34)
[2025-03-30] MEDS: SINCALIDE IV ONE (12:34)
[2025-03-30] MEDS: potassium Cl 40MEQ/1/2NS 520ml 520 ML IV PRN (13:33)
--- NOTE | 2025-03-30 14:18 | RADIOLOGY REPORT ---
PROCEDURE: [place] NM HIDA SCAN Exam Date: 03/30/2025 10:33 AM CLINICAL HISTORY: Cholecystitis Comparison Study: None Nuclear Medicine Hepatobiliary Scan. TECHNIQUE: Following the intravenous administration of 1 mCi of technetium 99m labeled Choletec multiple planar abdominal planar images were obtained in anterior projection in 5 minute intervals for60 minutes . 1.1 mcg of CCK was administered. FINDINGS: The liver appears grossly normal in size. There is no abnormal persistence of the cardiac or blood pool activity. Gallbladder visualized at approximately 15 minutes. Small bowel visualized by approximately 50 minutes. After the administration of 1.1 mcg CCK, gallbladder EF 88% IMPRESSION: Patent cystic duct. Gallbladder EF 88%.
[2025-03-30 15:12] LABS: MEAN PLATELET VOLUME 7.3 FL (7.4-10.4); RED CELL DISTRIBUTION WIDTH 19.0 % (11.5-14.5)
[2025-03-30 15:17] LABS: CREATININE 0.83 MG/DL (0.40-0.90); TOTAL CARBON DIOXIDE 25.2 MMOL/L (24-32); eCRCL 51 ML/MIN; eGFR 68 ML/MIN
[2025-03-30 15:38] LABS: PLATELET ESTIMATE NORMAL
[2025-03-30 17:09] VITALS: BP 114/80; PULSE 87; RESP 16; TEMP 97.2; O2SAT 98
--- NOTE | 2025-03-30 19:16 | PROGRESS NOTE- Residence ---
Progress Note - Resident Providers to CC Resident Creating Document: BETTY RODRIGUEZ RES ~ Antibiotic Timeout Antibiotic Ordered?: Yes Subjective Patient was seen and examined bedside, reports back pain and was requesting for food. also reports she had panic attack lasted for 10 minutes and she wanted to go to bed . Objective Vital Signs Date Time Temp Pulse Resp B/P (MAP) Pulse Ox O2 Delivery O2 Flow Rate FiO2 03/30/25 17:09 97.2 87 16 114/80 (91) 98 Room Air 03/29/25 11:19 0.0 Result Diagram: 03/30/25 1454 03/30/25 1454 General: Well alert, well oriented, not confused, not agitated, well cooperated during the physical. HEENT: Conjunctive are pink, sclerae clear, no icterus, pupil is equal in both sides, reactive to light, no ear discharge, no pharyngeal erythema or an edema. Neck: Supple, no JVD, no lymphadenopathy and thyromegaly. Chest: Equal air entry on both lungs, no added sounds, no wheeze. Cardiovascular: S1-S2 regular sinus rhythm and, regular rate, no gallops, no rubs, no murmurs Abdomen: Bowel sounds present on auscultation, soft, nontender, no guarding, no rigidity, NO GUARDING Extremities: No obvious deformities, no pitting edema bilaterally, capillary refill intact, peripheral pulsations are intact on both sides Central Nervous System: Tremors in the hands and legs No focal neurological deficits, no motor or sensory weakness in all 4 extremities, power 5/5, 2+ deep tendon reflexes, negative Babinski. Musculoskeletal: No joint swelling, deformities, inflammations, and no scoliosis Coagulation Studies Laboratory Tests Test 03/30/25 05:54 Prothrombin Time 11.0 SECONDS (9.0-12.0) INR International Normalized Ratio 1.1 INR Coagulation Comments Assessment Assessment This is a 69-year-old woman currently being treated for heavy alcohol withdrawal, acute liver injury with acetaminophen toxicity, suicidal ideation and depression. Her procalcitonin level is elevated, positive source of infection could be cholecystitis. Plan Plan Alcohol Use Disoder Alcohol Withdrawl CIWA SCORE 9 No hallucination Continue patient on [place] alcohol withdrawal protocol Continue with Ativan 4 mg and 2 mg prn. Nausea and vomiting to be controlled with Zofran 4 mg p.r.n. q.4h and Compazine 10 mg q.4h p.r.n. Vitamin B12 folic acid and multivitamins on chart Monitor vitals. Patient looks dehydrated, normal saline at 75 mL/hour. Hepatic Injury like multifactorial Alcohol-induced, acetaminophen Acetaminophen levels within the normal range. We will start N acetyl cystine just as a precautionary measure since acetaminophen level is above 10. N acetyl cystine has been stopped. Repeat acetaminophen level shows less than 2. AST 226, ALT 298. Patient has no signs and symptoms of hepatic failure, no jaundice, no abdominal distention, no ascites, no abdominal pain. Abdominal ultrasound shows hepatic steatosis with cholelithiasis and a CBD diameter of 0.4 Continue monitor levels. Normal lipase levels. Avoid acetaminophen at all cost. Hep B and C results pending. Poison control on board. Cholelithiasis and cholecystitis Alcala sign positive, elevated procalcitonin. Patient does not seem to be in sepsis. Elevated procalcitonin. HIDA scan shows: Patent cystic duct.Gallbladder EF 88% Dr. Hayes consulted who recommended HIDA scan ON zoysn and probiotics Chronic back pain, osteoarthritis, osteoporosis Lumbar spine CT shows No acute fracture or traumatic subluxation. Pain management with tramadol 50 q.8h p.r.n. 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 Vitamin B12, thiamin, multivitamins on board. Dyslipidemia ASCVD score indicates moderate to high intensity statin Currently on hold in view of her acute hepatic injury. Suicidal ideation, depression and anxiety. Not on any medication currently 1798, sitter Code status: Full code DVT prophylaxis: Heparin 5000 subcutaneous Analgesia/sedation: Morphine/[place] Line/tube: PIV GI prophylaxis: Protonix Nutrition: Regular diet PT: Ordered. Prognosis: Guarded Disposition: 1798, sitter, follow up with daily procal. This case has been discussed and seen by my senior residents PGY 2/PGY [address] Sy. Betty Rodriguez PGY 1 IM. Date of Service: Mar 30, 2025 Billing Provider: PIOTR SY MD, SANJAY, RES Mar 30, 2025 19:16
[2025-03-30 22:00] VITALS: BP 137/72; PULSE 85; RESP 12; TEMP 98.1; O2SAT 97
[2025-03-31] VITALS (10 sets, daily range): BP systolic 117–148; BP diastolic 67–95; PULSE 64–82; RESP 14–18; TEMP 97.2–98.3; O2SAT 96–99
[2025-03-31 07:09] LABS: MEAN PLATELET VOLUME 7.5 FL (7.4-10.4); RED CELL DISTRIBUTION WIDTH 19.4 % (11.5-14.5)
[2025-03-31 07:26] LABS: CREATININE 0.65 MG/DL (0.40-0.90); TOTAL CARBON DIOXIDE 24.3 MMOL/L (24-32); eCRCL 65 ML/MIN; eGFR 90 ML/MIN
[2025-03-31 08:50] LABS: EOSINOPHILS % (MANUAL) 6.0 % (0-6); LYMPHOCYTES % (MANUAL) 50.0 % (21-51); MONOCYTES % (MANUAL) 9.0 % (2-12); NEUTROPHILS % (MANUAL) 35.0 % (42-75); PLATELET ESTIMATE NORMAL
[2025-03-31 09:12] LABS: HBSAG SCREEN Negative (Negative); HEP A AB, IGM Negative (Negative); HEP B CORE AB, IGM Negative (Negative); HEPATITIS C VIRUS ANTIBODY Non Reactive (Non Reactive)
[2025-03-31] MEDS: cyanocobalamin 500mcg tablet PO SCH (09:13)
[2025-03-31 14:35] LABS: MEAN PLATELET VOLUME 7.4 FL (7.4-10.4); RED CELL DISTRIBUTION WIDTH 19.1 % (11.5-14.5)
[2025-03-31 15:10] LABS: CREATININE 0.59 MG/DL (0.40-0.90); TOTAL CARBON DIOXIDE 25.3 MMOL/L (24-32); eCRCL 71 ML/MIN; eGFR > 90 ML/MIN
[2025-03-31 16:35] LABS: CSF SUPERNATANT COLOR COLORLESS; CSF VOLUME 12.5 ML; CSF WBC CT 3 /CU MM (0-5); TUBE# COUNTED 1
[2025-03-31 16:44] LABS: APPEARANCE,CSF CLEAR; CSF RBC 1 /CU MM (0)
[2025-03-31 16:50] LABS: TOTAL PROTEIN,CSF 45 MG/DL (30-60)
--- NOTE | 2025-03-31 17:00 | PROGRESS NOTE ---
Progress Note - Angio Providers to CC ~ Angio Progress Note: LP performed at L3-4 level single puncture. No immed complications, EBL zero. Total of 13.5 ml clear csf removed. Dictated. ANYI LOCKHART MD Mar 31, 2025 17:00
--- NOTE | 2025-03-31 17:58 | PROGRESS NOTE- Residence ---
Progress Note - Resident Providers to CC Resident Creating Document: MOHAMUD LAUGHLIN, TIMOTHY ~ Central Line/PICC still needed: N\A [place]-Non Protocol [place] Indications Met/Not Met: F/C Indications Not Met Antibiotic Timeout Antibiotic Ordered?: Yes Subjective Patient was examined bedside. Her tremors in her hands and legs are Getting better. He still complains of nausea without vomiting even with Zofran Compazine on board. She complained of neck pain today. Her back pain is well controlled, 2 to 3/10. No acute symptoms overnight Objective Vital Signs Date Time Temp Pulse Resp B/P (MAP) Pulse Ox O2 Delivery O2 Flow Rate FiO2 03/31/25 11:00 97.7 82 14 117/74 (88) 96 Room Air 03/29/25 11:19 0.0 Result Diagram: 03/31/25 1419 03/31/25 1419 General: Poorly built, Well alert, well oriented, not confused, not agitated, not in acute distress, well cooperated during the physical. HEENT: Conjunctive are pink, sclerae clear, no icterus, pupil is equal in both sides, reactive to light, no ear discharge, no pharyngeal erythema or an edema. Neck: Supple, no JVD, no lymphadenopathy and thyromegaly. Chest: Equal air entry on both lungs, no added sounds, no wheeze. Cardiovascular: S1-S2 regular sinus rhythm and, regular rate, no gallops, no rubs, no murmurs Abdomen: Positive Alcala sign, Bowel sounds present on auscultation, soft, nontender, no guarding, no rigidity Extremities: No obvious deformities, no pitting edema bilaterally, capillary refill intact, peripheral pulsations are intact on both sides Central Nervous System: Tremors in the hands and legs, tremors in tongue. No focal neurological deficits, no motor or sensory weakness in all 4 extremities, could move all 4 extremities, 2+ deep tendon reflexes, negative Babinski. Musculoskeletal: No joint swelling, deformities, inflammations, and no scoliosis and back tenderness Skin: Warm and dry. Coagulation Studies Laboratory Tests Test 03/30/25 05:54 Prothrombin Time 11.0 SECONDS (9.0-12.0) INR International Normalized Ratio 1.1 INR Coagulation Comments Assessment Assessment This is a 69-year-old woman currently being treated for heavy alcohol withdrawal, acute liver injury with acetaminophen toxicity and alcohol-induced, suicidal ideation and depression. Her procalcitonin level is elevated, HIDA scan negative. She underwent an LP in view of elevated procalcitonin, intractable nausea and neck pain. Spinal fluid analysis normal. Urine culture grew mixed Gram-positive Gram-negative michelle. Plan Plan Severe alcohol withdrawal CIWA score 25 No hallucination Vitals: Tachycardia, sinus rhythm. CMP essentially normal. Started the patient on severe alcohol withdrawal protocol We will continue with Ativan 4 mg and 2 mg prn. Nausea and vomiting to be controlled with Zofran 4 mg p.r.n. q.4h and Compazine 10 mg q.4h p.r.n. Vitamin B12 folic acid and multivitamins on chart Monitor vitals, monitor levels. Patient looks dehydrated, normal saline at 75 mL/hour. Acute hepatic injury, multifactorial Alcohol-induced, acetaminophen Acetaminophen levels within the normal range. Completed 3 courses of N acetyl cystine just as a precautionary measure since acetaminophen level is above 10. Repeat acetaminophen level shows less than 2. AST and ALT improving today. Normal ALP, bilirubin and INR Patient has no signs and symptoms of hepatic failure, no jaundice, no abdominal distention, no ascites, no abdominal pain. Abdominal ultrasound shows hepatic steatosis with cholelithiasis and a CBD diameter of 0.4. Normal lipase levels. Avoid acetaminophen at all cost. Poison control on board. Cholelithiasis and cholecystitis Alcala sign positive, elevated procalcitonin. Patient does not seem to be in sepsis. Elevated procalcitonin. HIDA scan negative, blood cultures no growth on day 2 Continue Zosyn day [address] Morales, surgeon on board Elevated procalcitonin Patient underwent lumbar puncture with IR team in view of her symptoms of nausea, elevated procalcitonin, neck pain Spinal fluid analysis was essentially normal. With normal protein glucose and WBCs. Urinalysis shows 0-2 WBCs with few bacteria, the patient is asymptomatic Urine culture shows mixed Gram-positive and Gram-negative michelle Blood culture shows no growth. Chronic back pain, osteoarthritis, osteoporosis Lumbar spine CT shows No acute fracture or traumatic subluxation. Pain management with tramadol 50 q.8h p.r.n. 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 Vitamin B12, thiamine, multivitamins on board. Dyslipidemia ASCVD score indicates moderate to high intensity statin Currently on hold in view of her acute hepatic injury. Suicidal ideation, depression and anxiety. Not on any medication currently Code status: Full code DVT prophylaxis: Heparin 5000 subcutaneous Analgesia/sedation: Morphine/[place] Line/tube: PIV GI prophylaxis: Protonix Nutrition: Regular diet PT: Ordered. Prognosis: Guarded Disposition: This case has been discussed and seen by my senior residents PGY 2/PGY [address] Sy. Mohamud Laughlin MD PGY1, Internal Medicine [facility] Date of Service: Mar 31, 2025 Billing Provider: PIOTR SY MD, SHIVANI, RES Mar 31, 2025 17:58
--- NOTE | 2025-03-31 18:34 | RADIOLOGY REPORT ---
Fluoroscopic guided lumbar puncture History: 69-year-old female with evaluation for possible meningitis. Procedure: 1. Fluoroscopically guided lumbar puncture at the L3-4 level. Estimated blood loss: Less than 1 cc. Complication: None immediate Medication: Lidocaine total of 2 cc 1% subcutaneous; Sedation time: 45 minutes Fluoroscopy time: Fluoroscopy time 0.2 minutes with dose of 3 mGy. Findings/technique: Written informed consent was obtained from the patient following a thorough discussion of the risks, alternatives, and benefits of the procedure. All questions were answered appropriately and thoroughly. The patient was placed in the prone position on the fluoroscopy table. The lower back was prepped and draped in standard sterile fashion using maximum sterile barrier technique. A timeout was performed prior to preprocedure. Lidocaine 1% was infiltrated into the skin and soft tissues overlying the L3-4 level. A 20-gauge needle was then advanced under fluoroscopic guidance to the expected location of the thecal sac at the L3-4 level. A total of approximately 13.5 mL of clear cerebrospinal fluid was drained. The opening pressure was assessed at 19 cm of water. The needle was removed and manual pressure was held until hemostasis was obtained. Impression: Successful and uncomplicated fluoroscopically guided lumbar puncture at the L3-4 level. Total of approximately 13.5 mL of cerebrospinal fluid was drained.
[2025-04-01] VITALS (9 sets, daily range): BP systolic 101–147; BP diastolic 60–85; PULSE 67–120; RESP 10–20; TEMP 97.3–98.7; O2SAT 94–97
[2025-04-01 07:53] LABS: MEAN PLATELET VOLUME 7.7 FL (7.4-10.4); RED CELL DISTRIBUTION WIDTH 18.5 % (11.5-14.5)
[2025-04-01 08:14] LABS: CREATININE 0.53 MG/DL (0.40-0.90); TOTAL CARBON DIOXIDE 27.7 MMOL/L (24-32); eCRCL 79 ML/MIN; eGFR > 90 ML/MIN
--- NOTE | 2025-04-01 10:15 | PROGRESS NOTE- Residence ---
Progress Note - Resident Providers to CC Resident Creating Document: MOHAMUD LAUGHLIN, RES ~ Central Line/PICC still needed: N\A Antibiotic Timeout Antibiotic Ordered?: Yes Subjective Patient was examined bedside. No acute symptoms overnight. Tremors in the hands and legs are improving. She was placed in a wick since she had imbalance while walking to the bathroom. This has been discontinued, asked the nurse and the sitter to help her when she goes to the bathroom. She is medically cleared for [facility] to evaluate her. The patient's daughter Ke [phone], present at bedside. Patient was okay to discuss support her with the daughter. We will with the daughter in loop Objective Vital Signs Date Time Temp Pulse Resp B/P (MAP) Pulse Ox O2 Delivery O2 Flow Rate FiO2 04/01/25 08:30 16 96 Room Air 0.0 04/01/25 08:09 97.5 78 117/60 (79) Result Diagram: 04/01/25 0652 04/01/25 0652 General: Poorly built, Well alert, well oriented, not confused, not agitated, not in acute distress, well cooperated during the physical. HEENT: Conjunctive are pink, sclerae clear, no icterus, pupil is equal in both sides, reactive to light, no ear discharge, no pharyngeal erythema or an edema. Neck: Supple, no JVD, no lymphadenopathy and thyromegaly. Chest: Equal air entry on both lungs, no added sounds, no wheeze. Cardiovascular: S1-S2 regular sinus rhythm and, regular rate, no gallops, no rubs, no murmurs Abdomen: Positive Alcala sign, Bowel sounds present on auscultation, soft, nontender, no guarding, no rigidity Extremities: No obvious deformities, no pitting edema bilaterally, capillary refill intact, peripheral pulsations are intact on both sides Central Nervous System: Tremors in the hands and legs, tremors in tongue. No focal neurological deficits, no motor or sensory weakness in all 4 extremities, could move all 4 extremities, 2+ deep tendon reflexes, negative Babinski. Musculoskeletal: No joint swelling, deformities, inflammations, and no scoliosis and back tenderness Skin: Warm and dry. Coagulation Studies Laboratory Tests Test 03/30/25 05:54 Prothrombin Time 11.0 SECONDS (9.0-12.0) INR International Normalized Ratio 1.1 INR Coagulation Comments Counseling Services Smoking & Tobacco Cessation: N/A Advance Care Planning Advanced Care planning: N/A Assessment Assessment This is a 69-year-old woman currently being treated for heavy alcohol withdrawal, acute liver injury with acetaminophen toxicity and alcohol-induced, suicidal ideation and depression. Her procalcitonin level is elevated, HIDA scan negative. She underwent an LP in view of elevated procalcitonin, intractable nausea and neck pain. Spinal fluid analysis normal. Urine culture grew mixed Gram-positive Gram-negative michelle. Her prolactin levels downtrending. [facility] cleared her for 5150 today. Plan Plan Severe alcohol withdrawal CIWA score 25 No hallucination Vitals: Tachycardia, sinus rhythm. CMP essentially normal. Continue severe alcohol withdrawal protocol with Ativan 4 mg and 2 mg prn. She also received phenobarbital last night in view of agitation and tremors. Nausea and vomiting to be controlled with Zofran 4 mg p.r.n. q.4h and Compazine 10 mg q.4h p.r.n. Vitamin B12 folic acid and multivitamins on chart Monitor vitals Patient looks dehydrated, continue normal saline at 75 mL/hour. Acute hepatic injury, multifactorial Alcohol-induced, acetaminophen Acetaminophen levels within the normal range. Completed 3 courses of N acetyl cystine just as a precautionary measure since acetaminophen level is above 10. Repeat acetaminophen level shows less than 2. AST and ALT improving today. Normal ALP, bilirubin and INR Patient has no signs and symptoms of hepatic failure, no jaundice, no abdominal distention, no ascites, no abdominal pain. Abdominal ultrasound shows hepatic steatosis with cholelithiasis and a CBD diameter of 0.4. Normal lipase levels. Avoid acetaminophen at all cost. Poison control on board. Cholelithiasis and cholecystitis Alcala sign positive, elevated procalcitonin. Patient does not seem to be in sepsis. Elevated procalcitonin. HIDA scan negative, blood cultures no growth on day 2 Continue Zosyn day [address] Morales recommended no surgery Elevated procalcitonin Patient underwent lumbar puncture with IR team in view of her symptoms of nausea, elevated procalcitonin, neck pain Spinal fluid analysis was essentially normal. With normal protein glucose and WBCs. Urinalysis shows 0-2 WBCs with few bacteria, the patient is asymptomatic Urine culture shows mixed Gram-positive and Gram-negative michelle Procalcitonin downtrending to 26 today Blood culture shows no growth. Chest x-ray normal Chronic back pain, osteoarthritis, osteoporosis Lumbar spine CT shows No acute fracture or traumatic subluxation. Pain management with tramadol 50 q.8h p.r.n. 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 Vitamin B12, thiamine, multivitamins on board. Dyslipidemia ASCVD score indicates moderate to high intensity statin Currently on hold in view of her acute hepatic injury. Suicidal ideation, depression and anxiety. Cleared by the [facility] sitter and 1798 Code status: Full code DVT prophylaxis: Heparin 5000 subcutaneous Analgesia/sedation: Morphine/[place] Line/tube: PIV GI prophylaxis: Protonix Nutrition: Regular diet PT: Ordered. Prognosis: Guarded Disposition: 1798, This case has been discussed and seen by my senior residents PGY 2/PGY [address] Sy. Mohamud Laughlin MD PGY1, Internal Medicine [facility] Date of Service: Apr 01, 2025 Billing Provider: PIOTR SY MD, SHIVANI, RES Apr 01, 2025 10:15
[2025-04-01 13:59] LABS: MEAN PLATELET VOLUME 7.3 FL (7.4-10.4); RED CELL DISTRIBUTION WIDTH 19.3 % (11.5-14.5)
[2025-04-01 14:13] LABS: CREATININE 0.55 MG/DL (0.40-0.90); TOTAL CARBON DIOXIDE 26.0 MMOL/L (24-32); eCRCL 76 ML/MIN; eGFR > 90 ML/MIN
[2025-04-02 02:00] VITALS: BP 145/80; PULSE 98; RESP 20; TEMP 97.7; O2SAT 97
[2025-04-02 05:19] LABS: CREATININE 0.63 MG/DL (0.40-0.90); TOTAL CARBON DIOXIDE 26.5 MMOL/L (24-32); eCRCL 67 ML/MIN; eGFR > 90 ML/MIN
[2025-04-02 05:55] LABS: MEAN PLATELET VOLUME 7.7 FL (7.4-10.4); RED CELL DISTRIBUTION WIDTH 18.8 % (11.5-14.5)
[2025-04-02 06:00] VITALS: BP 132/63; PULSE 74; RESP 15; TEMP 97.9; O2SAT 95
[2025-04-02 08:00] VITALS: RESP 15; O2SAT 95
[2025-04-02 11:00] VITALS: BP 136/73; PULSE 91; RESP 17; TEMP 97.8; O2SAT 96
[2025-04-02] MEDS ORDERED: thiamine tablet PO (11:11)
[2025-04-02] MEDS ORDERED: FOLI1TAB27 PO (11:11)
[2025-04-02] MEDS ORDERED: LACT1CAP26 PO (11:11)
[2025-04-02] MEDS ORDERED: CYAN500T71 PO (11:11)
[2025-04-02] MEDS ORDERED: CEFD300C3 PO (11:14)
--- NOTE | 2025-04-02 17:59 | DISCHARGE SUMMARY-Residence ---
Discharge Summary Providers to CC Resident Creating Document: FRANSICOJUANIMANUELTIMOTHY MALLORY ~ Discharge Summary Admission Diagnosis: Alcohol withdrawal, transaminitis Hospital Course DATE OF ADMISSION: 03/28/2025 DATE OF DISCHARGE: 04/01/2025 Discharge Diagnosis\Comment: Severe alcohol withdrawal Acute hepatic injury, multifactorial alcohol-induced, acetaminophen Cholelithiasis Chronic back pain Generalized weakness Dyslipidemia Microcytic hyperchromic anemia Suicide ideation Depression and anxiety Operations\Procedures: None Consultants: None Complications: None Condition on DC: Stable New Medications: Cefdinir* (Cefdinir*) 300 Mg Capsule 1 CAP PO Q12H for 3 Days, #6 CAP Cyanocobalamin* (Vitamin B-12*) 500 Mcg Tablet 500 MCG PO DAILY for 30 Days, #30 TAB Folic Acid* (Folic Acid*) Y Tab 1 MG PO DAILY for 30 Days, #30 TAB Lactobacillus Rhamnosus (Culturelle) 10 Billion Cell Capsule 35647 MMU PO BID for 30 Days, #60 CAP [thiamine tablet] () 100 MG TABLET 100 MG PO DAILY for 30 Days, #30 Continued Medications: Diclofenac Sodium (Voltaren Arthritis Pain) 20 Gm Gel..gram. 1 APPLIC TP TID for 7 Days, #1 UNIT Pantoprazole Sodium (Pantoprazole Sodium) 40 Mg Tablet.dr 40 MG PO DAILY@0730, #14 TAB.SR Trazodone HCl (Trazodone HCl) 50 Mg Tablet 2 TAB PO HS for 30 Days, #30 TAB 0 Refills Discontinued Medications: Hydrocodone Bit/Acetaminophen 5/325 MG (Turner 5/325 MG) 5 Mg/325 Mg Tablet 1 TAB PO TID PRN for moderate or severe pain, TAB Discharge Summary: History of present illness: This is a 69-year-old female with history of alcohol use disorder, depression who came to the ER complaining of generalized weakness. She gets extremely tired just by walking to the bathroom. She has had episodes of lightheadedness with sudden movements. She gave history of drinking excessive alcohol from the past 3 months after her goddaughter and her dog passed. She drinks 3 cans of extra strength beer. She gave history of alcohol use disorder in the past. She has had alcohol-induced hallucinations in the past. On admission she complained of tremors in her hands and legs, intractable nausea with vomiting. Vomitus contained food particles, non blood-tinged not bile-stained. No hallucinations, no seizures currently. She is alert oriented and cooperative. She also gives history of extreme weakness, poor oral intake due to depression and alcohol. Unable to perform daily activities. She also gives history of shortness of breath with palpitation which wakes her up, especially at night. This can be suggestive of orthopnea or a panic attack. She does have history of panic attack. She underwent endoscopy and colonoscopy 2 months ago since she was having diarrhea, 6 episodes a day one episode of black tarry stool. The endoscopy revealed that she had a stomach ulcer and the colonoscopy revealed an impacted stool which was causing diarrhea. Currently not complaining of abdominal pain. She has been on many psychiatric medications for depression in the past, which have caused adverse reactions on her including delirium, confusion, lethargy and apathy. She has a history of chronic back pain, diagnosed with osteoporosis and arthritis. She has been treating the back pain with Tylenol and beer. She takes extra-strength Tylenol [id number]. Does not remember the name of her primary care provider but endorses that she visited him 4 months ago. No history of chest pain, dizziness, diaphoresis, syncope. No history of abdominal pain currently, no hematemesis, no melena no hematochezia. Hospital course: The patient was treated for severe alcohol withdrawal with phenobarbital and Ativan. Nausea and vomiting was well controlled with Zofran and Compazine. She continues significantly improve with no tremors towards the end of her hospitalization. She was found to have transaminitis about 1999. She received 3 bags of NAC as an antidote for Tylenol toxicity. Her liver enzymes continued to trend down. She had Alcala sign positive and cholelithiasis on ultrasound. HIDA scan was negative. Surgery was consulted, recommended no further procedures. She was found to have elevated procalcitonin. She was treated with Zosyn for the same. We tried to find source of her infection, cholelithiasis without cholecystitis, normal urinalysis with mixed michelle, normal CSF. She had a CSF tap since she complained of neck pain, neck rigidity nausea and v omiting with elevated procalcitonin. After an extensive workup we ruled out infectious causes in her. She was placed on 1798 in the center in view of her suicidal ideation. After medically clearing her, [facility] cleared her. She is currently hemodynamically stable and symptomatically better and hence being discharged home with the following instructions. Vital Signs Date Time Temp Pulse Resp B/P (MAP) Pulse Ox O2 Delivery O2 Flow Rate FiO2 04/02/25 11:00 97.8 91 17 136/73 (94) 96 Room Air 04/01/25 11:13 3.0 Laboratory Tests Test 04/01/25 06:52 04/01/25 08:36 04/01/25 13:47 04/02/25 04:34 White Blood Count 3.1 X10'3 3.0 X10'3 Red Blood Count 2.68 X10'6 3.09 X10'6 Hemoglobin 9.2 g/dl 10.6 g/dl Hematocrit 27.8 % 32.3 % Mean Corpuscular Volume 103.6 FL 104.5 FL Mean Corpuscular Hemoglobin 34.3 PG 34.1 PG Mean Corpuscular Hemoglobin Concent 33.1 g/dL 32.7 g/dL Red Cell Distribution Width 18.5 % 19.3 % Platelet Count 209 X10'3 223 X10'3 Mean Platelet Volume 7.7 FL 7.3 FL Neutrophils (%) (Auto) 40.3 % 49.2 % Lymphocytes (%) (Auto) 44.2 % 36.1 % Monocytes (%) (Auto) 9.9 % 10.6 % Eosinophils (%) (Auto) 3.5 % 2.7 % Basophils (%) (Auto) 2.1 % 1.4 % Neutrophils # (Auto) 1.2 X10'3 1.5 X10'3 Lymphocytes # (Auto) 1.4 X10'3 1.1 X10'3 Monocytes # (Auto) 0.3 X10'3 0.3 X10'3 Eosinophils # (Auto) 0.1 X10'3 0.1 X10'3 Basophils # (Auto) 0.1 X10'3 0.0 X10'3 CBC Comment Sodium Level 144 MMOL/L 141 MMOL/L 141 MMOL/L Potassium Level 3.6 MMOL/L 3.9 MMOL/L 3.6 MMOL/L Chloride Level 109 MMOL/L 108 MMOL/L 108 MMOL/L Carbon Dioxide Level 27.7 MMOL/L 26.0 MMOL/L 26.5 MMOL/L Anion Gap 7 7 7 Blood Urea Nitrogen 6 MG/DL 5 MG/DL 6 MG/DL Creatinine 0.53 MG/DL 0.55 MG/DL 0.63 MG/DL Estimated GFR/1.73 m2 > 90 ML/MIN > 90 ML/MIN > 90 ML/MIN BUN/Creatinine Ratio 11.3 9.1 9.5 Glucose Level 92 MG/DL 109 MG/DL 97 MG/DL Calcium Level 8.5 MG/DL 8.6 MG/DL 8.5 MG/DL Magnesium Level 1.6 MG/DL Total Bilirubin 0.5 MG/DL 0.4 MG/DL 0.5 MG/DL Aspartate Amino Transf (AST/SGOT) 66 U/L 59 U/L 40 U/L Alanine Aminotransferase (ALT/SGPT) 152 U/L 155 U/L 125 U/L Alkaline Phosphatase 99 IU/L 105 IU/L 103 IU/L Total Protein 5.2 G/DL 5.8 G/DL 5.6 G/DL Albumin 2.2 G/DL 2.4 G/DL 2.4 G/DL Globulin 3.0 G/DL 3.4 G/DL 3.2 G/DL Albumin/Globulin Ratio 0.7 0.7 0.8 Procalcitonin 25.16 NG/ML Chemistry Comments Prolactin 30.0 ng/mL Test 04/02/25 04:59 White Blood Count 4.1 X10'3 Red Blood Count 2.88 X10'6 Hemoglobin 10.0 g/dl Hematocrit 29.8 % Mean Corpuscular Volume 103.4 FL Mean Corpuscular Hemoglobin 34.8 PG Mean Corpuscular Hemoglobin Concent 33.7 g/dL Red Cell Distribution Width 18.8 % Platelet Count 218 X10'3 Mean Platelet Volume 7.7 FL Neutrophils (%) (Auto) 53.1 % Lymphocytes (%) (Auto) 29.5 % Monocytes (%) (Auto) 10.1 % Eosinophils (%) (Auto) 5.9 % Basophils (%) (Auto) 1.4 % Neutrophils # (Auto) 2.2 X10'3 Lymphocytes # (Auto) 1.2 X10'3 Monocytes # (Auto) 0.4 X10'3 Eosinophils # (Auto) 0.2 X10'3 Basophils # (Auto) 0.1 X10'3 CBC Comment Procalcitonin 14.02 NG/ML Imaging: Abdominal ultrasound: Constellation of findings suspicious for early acute cholecystitis. Chest x-ray: No acute distress Lumbar spine CT: No acute fracture or traumatic subluxation. Echocardiogram: Overall LVEF is 60-65%. Normal LV size and wall thickness. Overall systolic function is normal. RV is normal size and function. Estimated PA systolic pressure of 31 mm of mercury. Trileaflet AV appears sclerotic without stenosis. No insufficiency by color and spectral flow Doppler. Mild MV annular calcification without stenosis. [id number] regurgitation by color and spectral flow Doppler. TV appears structurally normal with trace regurgitation by color and spectral flow Doppler. Normal PV without stenosis, physiologic insufficiency by color and spectral flow Doppler. Normal pericardium. No effusion. HIDA scan: Patent cystic duct. Gallbladder EF 88%. Lumbar puncture: Successful and uncomplicated fluoroscopically guided lumbar puncture at the L3-4 level. Total of approximately 13.5 mL of cerebrospinal fluid was drained. Physical exam on discharge: General: Poorly built, Well alert, well oriented, not confused, not agitated, not in acute distress, well cooperated during the physical. HEENT: Conjunctive are pink, sclerae clear, no icterus, pupil is equal in both sides, reactive to light, no ear discharge, no pharyngeal erythema or an edema. Neck: Supple, no JVD, no lymphadenopathy and thyromegaly. Chest: Equal air entry on both lungs, no added sounds, no wheeze. Cardiovascular: S1-S2 regular sinus rhythm and, regular rate, no gallops, no rubs, no murmurs Abdomen: Positive [place]cala sign, Bowel sounds present on auscultation, soft, nontender, no guarding, no rigidity Extremities: No obvious deformities, no pitting edema bilaterally, capillary refill intact, peripheral pulsations are intact on both sides Central Nervous System: Tremors in the hands and legs, tremors in tongue. No focal neurological deficits, no motor or sensory weakness in all 4 extremities, could move all 4 extremities, 2+ deep tendon reflexes, negative Babinski. Musculoskeletal: No joint swelling, deformities, inflammations, and no scoliosis and back tenderness Skin: Warm and dry. Discharge instructions: Take all medications regularly. Take your antibiotics cefdinir for 3 days We highly recommend you to quit drinking alcohol. Avoid Tylenol and NSAIDs for pain since it can cause gastric ulcers and liver injury Tramadol has been prescribed for back pain. Follow up with the primary care physicians in 2 weeks Visit ER immediately in case of any acute emergencies including tremors, hallucinations, seizures, abdominal pain, nausea/vomiting , hematemesis. *Problems/Diagnosis: (1) Acetaminophen overdose Status: Acute (2) Alcohol intoxication Status: Acute (3) Suicidal ideation Status: Acute (4) Erosive esophagitis (5) Low back pain Status: Acute (6) Depression Status: Acute Total Time Spent on D/C: > 30 Minutes Counseling Services Smoking & Tobacco Cessation: N/A Date of Service: Apr 02, 2025 Billing Provider: PIOTR LUA MD Problem Qualifiers (1) Low back pain: Chronicity: chronic Back pain laterality: midline Sciatica presence: without sciatica Qualified Codes: M54.50 - Low back pain, unspecified; G89.29 - Other chronic pain (2) Depression: Depression Type: major depressive disorder Major depression recurrence: recurrent Active/Remission status: currently active Major depression episode severity: severe Psychotic features: without psychotic features Qualified Codes: 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
== END 2025-04-02 13:30 | disposition home or self-care (01) | DRG 918 ==
LOC: ER 12:28 → ED HOLD 14:56 → EDBEDREQ 03-29 05:42 → PCU 3S 03-29 07:40
PROVIDERS: ADMIT Family Medicine; ATTEND Family Medicine
PROC: CF141ZZ Planar Nuclear Medicine Imaging of Gallbladder using Technetium 99m (Tc-99m) (ICD-10-PCS; 2025-03-30)
PROC: 009U3ZX Drainage of Spinal Canal, Percutaneous Approach, Diagnostic (ICD-10-PCS; principal; 2025-03-31)
PROC: B01B1ZZ Fluoroscopy of Spinal Cord using Low Osmolar Contrast (ICD-10-PCS; 2025-03-31)
DX: T39.1X1A Poisoning by 4-Aminophenol derivatives, accidental (unintentional), initial encounter (principal); E87.20 Acidosis, unspecified; D61.818 Other pancytopenia; F33.2 Major depressive disorder, recurrent severe without psychotic features; K22.10 Ulcer of esophagus without bleeding; K70.10 Alcoholic hepatitis without ascites; S36.119A Unspecified injury of liver, initial encounter; K80.10 Calculus of gallbladder with chronic cholecystitis without obstruction; F10.239 Alcohol dependence with withdrawal, unspecified; R45.851 Suicidal ideations; K71.9 Toxic liver disease, unspecified; R74.01 Elevation of levels of liver transaminase levels; F41.9 Anxiety disorder, unspecified; G89.29 Other chronic pain; M54.89 Other dorsalgia; X58.XXXA Exposure to other specified factors, initial encounter; Z88.0 Allergy status to penicillin; Z88.8 Allergy status to other drugs, medicaments and biological substances; Z79.899 Other long term (current) drug therapy; Y93.89 Activity, other specified; Y92.89 Other specified places as the place of occurrence of the external cause; Y99.8 Other external cause status; K70.9 Alcoholic liver disease, unspecified; K76.0 Fatty (change of) liver, not elsewhere classified
CPT/HCPCS: 36415; 62328; 71045; 72131; 76700; 78227; 80053; 80061; 80076; 80305; 80320; 80329; 81001; 82945; 82948; 83036; 83605; 83690; 83735; 83880; 84132; 84145; 84146; 84157; 84443; 85007; 85008; 85025; 85610; 85651; 86140; 86705; 86709; 86803; 87015; 87040; 87070; 87081; 87088; 87340; 87517; 87522; 89051; 93306; 96374; 96375; 97110; 97116; 97161; 99281; 99285; A6258; A9537; G0378; J0132; J1644; J2060; J2405; J2470; J2543; J2560; J2805; J3411; J3475; J3480; J3490; J7030; J7040; J7060; J7070

== ENCOUNTER 2025-04-03 14:50 | Emergency (ER) | payer MEDICARE, BC ==
[~2025-04-03] VITALS: Ht 157.5 cm; Wt 53.6 kg
[~2025-04-03 14:50] MED LIST changes: +CEFD300C3 PO; -CHLO25CA10 PO; -CLON0.1T2 PO; +CYAN500T71 PO; +FOLI1TAB27 PO; +LACT1CAP26 PO; -LORA-269 PO; -MULT-25 PO; -NALT50TA5 PO; -QUET100T34 PO; -TIZA-205 PO; +TRAZ-251 PO; -VENL225T3 PO; +thiamine tablet PO
[2025-04-03 14:55] VITALS: BP 155/85; PULSE 86; RESP 16; TEMP 98; O2SAT 96
== END 2025-04-03 18:20 | disposition left against medical advice (07) ==
LOC: ER 14:51
DX: R51.9 Headache, unspecified (principal); Z88.0 Allergy status to penicillin; Z88.8 Allergy status to other drugs, medicaments and biological substances; Z53.21 Procedure and treatment not carried out due to patient leaving prior to being seen by health care provider
CPT/HCPCS: 99281